=== PATIENT | female | born 1985 | race African-American/Black ===

== ENCOUNTER 2022-09-14 14:25 | Emergency (ER) | payer OTHER, SELFPAY ==
[2022-09-14 14:29] VITALS: BP 155/96; PULSE 95; RESP 20; TEMP 36.4; O2SAT 99
--- NOTE | 2022-09-14 17:36 | ED.SKABFB ---
HPI - Skin/Abscess/Foreign Bdy General Chief complaint: Skin/Abscess/Foreign Body Stated complaint: R AXILLA BOIL Time Seen by Provider: 09/14/22 17:34 Source: patient Mode of arrival: ambulatory Limitations: no limitations History of Present Illness HPI narrative: Patient is a 37 y/o female who presents to the ED with c/o abscess to her R axillary region. Patient reports she first developed pain in her axillary region 2 days ago. She noticed an abscess at that time. She does have frequent history of abscesses in bilateral armpits. Denies a personal diagnosis of hidradenitis suppurativa, but notes her mother has this. She has been using a heating pad in her right axillary region and states the abscess popped last night. Drained purulent material. Today, she noticed increased swelling and tenderness in her anterior axillary fat pad region which prompted her presentation. Patient denies any systemic sx's, fever, chills, nausea, vomiting. Related Data Allergies Allergy/AdvReac Type Severity Reaction Status Date / Time ibuprofen Allergy Other Verified 09/14/22 17:37 Review of Systems Review of Systems: CONSTITUTIONAL: Denies fever, chills, or sweats. CARDIOVASCULAR: Denies chest pain. RESPIRATORY: Denies dyspnea. GASTROINTESTINAL: Denies abdominal pain, nausea, vomiting. SKIN: Reports abscess to R axillary region spontaneous drainage. Reports swelling and tenderness to axillary fat pad. MUSCULOSKELETAL: Reports pain to R axillary region. All systems reviewed & are unremarkable except as noted in HPI and below PMFSH Past Medical History Medical History (Updated 09/14/22 @ 19:08 by Tita Capellan PA-C) No pertinent past medical history Surgical History Surgical History (Updated 09/14/22 @ 17:37 by Tita Capellan PA-C) No pertinent past surgical history Social History Social History (Updated 09/14/22 @ 17:37 by Tita Capellan PA-C) Smoking status: Never smoker Exam Narrative: GENERAL: Well appearing, morbidly obese, non-toxic, in no acute distress. HEAD: Normocephalic, atraumatic. NECK: Supple. No adenopathy, no masses. AXILLA: Bilateral axillary regions with hidradenitis suppurativa changes with tunneling, tracking, chronic scarring. Right axillary region with area of purulent drainage, no focal fluctuance, but tender to palpation. Prominent axillary fat pads bilaterally, area of tenderness, minimal induration to inferior fat pad on right side. RESPIRATORY: Airway patent, respirations nonlabored. Clear to auscultation bilaterally, no rales, rhonchi, wheezing. CARDIOVASCULAR: Regular rate and rhythm without murmurs, rubs, or gallops. Radial pulses 2+ and equal bilaterally. MUSCULOSKELETAL: Moves all extremities. Strength/ROM intact without gross deformities. SKIN: Warm, dry, normal color. No rashes. NEURO: A&O X3. Speech clear. Cranial nerves II-XII grossly intact. Steady gait. No ataxic movements. PSYCHIATRIC: Appropriate mood and affect. Normal interaction. Course Vital Signs Vital signs: Vital Signs Temperature 97.5 F L 09/14/22 14:29 Pulse Rate 95 09/14/22 14:29 Respiratory Rate 20 09/14/22 14:29 Blood Pressure 155/96 H 09/14/22 14:29 Pulse Oximetry 99 09/14/22 14:29 Oxygen Delivery Room Air 09/14/22 14:29 Temperature 97.5 F L 09/14/22 14:29 Pulse Rate 100 09/14/22 19:36 Respiratory Rate 20 09/14/22 19:36 Blood Pressure 171/115 H 09/14/22 17:38 Pulse Oximetry 98 09/14/22 19:36 Oxygen Delivery Room Air 09/14/22 14:29 MDM - Skin/Abscess/Foreign Bdy MDM Narrative Medical decision making narrative: Patient presented to ED with right axillary abscess, spontaneously drained yesterday. History of similar symptoms in the past, family history of HS, findings consistent with HS on exam. VSS. Afebrile. Bedside ultrasound utilized and some small deep septations noted in right axillary region, but no superficial or large fluid collections. Patient w
[2022-09-14 17:38] VITALS: BP 171/115; PULSE 101; RESP 18; O2SAT 100
[2022-09-14] MEDS: HYDROcodone/acetaminophen (*CRX) 5-325 MG TABLET 1 TAB PO (17:54)
[2022-09-14] MEDS: DOXYCYCLINE HYCLATE 100 MG TABLET PO (19:30)
[2022-09-14 19:36] VITALS: PULSE 100; RESP 20; O2SAT 98
== END 2022-09-14 19:42 | disposition home or self-care (01) ==
PROVIDERS: Emergency Provider Physician Assistant
DX: L02.411 Cutaneous abscess of right axilla (principal); L73.2 Hidradenitis suppurativa
CPT/HCPCS: 99283; A9270